=== PATIENT | male | born 1965 | race African-American/Black ===

== ENCOUNTER 2017-01-20 05:28 | Emergency (ER) | payer SELFPAY ==
[~2017-01-20] VITALS: Ht 182.9 cm; Wt 86.3 kg
[2017-01-20 06:25] VITALS: BP 112/75
== END 2017-01-20 06:26 | disposition home or self-care (01) ==
LOC: EDBD 05:28 → EME 05:28
DX: Z04.6 Encounter for general psychiatric examination, requested by authority (principal)
CPT/HCPCS: 80048; 81003; 85027; 99281; 99284; G0480